=== PATIENT | male | born 1980 | race African-American/Black ===

== ENCOUNTER 2025-03-12 10:08 | Emergency (ER) | payer MEDICAID, OTHER ==
[~2025-03-12] VITALS: Ht 185.4 cm; Wt 62.5 kg
[2025-03-12 10:11] VITALS: TEMP 97.4
--- NOTE | 2025-03-12 10:28 | ED.PDOC ---
HPI (NEURO) HPI Comments 45 y/o M, with PMHx of seizures presents to the ED for CC of confusion. Patient states, that he has felt confused, lethargic, and weak d/t being off prescribed medications for an unknown period of time. Patient relays, that he had a brain tumor removed x17 years ago and has since then, been taking Keppra. Patient was seen at [facility] [place] yesterday (03/11/25) all test and imaging came back unremarkable. At this time patient is A&Ox4. Chief Complaint: Confusion Time Seen by MD: 10:20 Reviewed Notes: Nurses Notes, Medications, Allergies Information Source: Patient Mode of Arrival: Ambulatory Severity: Moderate Headache Severity: None Timing: Months Duration: Since onset Prehospital treatment: None Weakness Location: Generalized Onset: At rest Circumstances: Spontaneous Symptoms: Weakness Modifying factors: Nothing Associated Signs and Symptoms: Weakness Past Medical History PAST MEDICAL HISTORY: Seizures Surgical History: Denies all surgeries Family History Family History: Unknown Social History Smoker: Cigarettes Alcohol: Occasionally Drugs: Marijuana Lives In: Home Constitutional: reports: weakness; denies: chills, diaphoresis, fatigue, fever, malaise, sweats, others EENTM: denies: blurred vision, double vision, ear bleeding, ear discharge, ear drainage, ear pain, ear ringing, eye pain, eye redness, hearing loss, mouth pain, mouth swelling, nasal discharge, nose bleeding, nose congestion, nose pain, photophobia, tearing, throat pain, throat swelling, voice changes, others Respiratory: denies: cough, hemoptysis, orthopnea, SOB at rest, shortness of breath, SOB with excertion, stridor, wheezing, others Cardiovascular: denies: chest pain, dizzy spells, diaphoresis, Dyspnea on exertion, edema, irregular heart beat, left arm pain, lightheadedness, palpitations, PND, syncope, others Gastrointestinal: denies: abdomen distended, abdominal pain, blood streaked bowels, constipated, diarrhea, dysphagia, difficulty swallowing, hematemesis, melena, nausea, poor appetite, poor fluid intake, rectal bleeding, rectal pain, vomiting, others Genitourinary: denies: burning, dysuria, flank pain, frequency, hematuria, incontinence, penile discharge, penile sore, pain, testicle pain, testicle swelling, urgency, others Neurological: reports: others (CONFUSION); denies: dizziness, fainting, headache, left sided numbness, left sided weakness, numbness, paresthesia, pre- existing deficit, right sided numbness, right sided weakness, seizure, speech problems, tingling, tremors, weakness Musculoskeletal: denies: back pain, gout, joint pain, joint swelling, muscle pain, muscle stiffness, neck pain, others Integumetry: denies: bruises, change in color, change in hair/nails, dryness, laceration, lesions, lumps, rash, wounds, others Allergic/Immunocompromised: denies: Difficulty Healing, Frequent Infections, Hives, Itching, others Hematologic/Lymphatic: denies: anemia, blood clots, easy bleeding, easy bruising, swollen glands, others Endocrine: denies: excessive hunger, excessive sweating, excessive thirst, excessive urination, flushing, intolerance to cold, intolerance to heat, unexplained weight gain, unexplained weight loss, others Psychiatric: denies: anxiety, bipolar disorder, depression, hopeless, panic disorder, schizophrenia, sleepless, suicidal, others All Other Systems: Reviewed and Negative Physical Exam General Appearance: No Apparent Distress HEENT: Normal ENT Inspection, Pharynx Normal, TMs Normal Neck: Full Range of Motion, Non-Tender, Normal, Normal Inspection Respiratory: Chest Non-Tender, Lungs Clear, No Accessory Muscle Use, No Respiratory Distress, Normal Breath Sounds Cardiovascular: No Edema, No JVD, No Murmur, No Gallop, Normal Peripheral Pulses, Regular Rate/Rhythm Breast Exam: Deferred Gastrointestinal: No Organomegaly, Non Tender, No Pulsatile Mass, Normal Bowel Sounds, Soft Genitalia: Deferred Pelvic: Deferred Rectal: Deferred Extremities: No calf tenderness, Normal capillary refill, Normal inspection, Normal range of motion, Non-tender, No pedal edema Musculoskeletal : Apperance: Normal Neurologic: Alert, surgical technology instructor II-XII nml as Tested, No Motor Deficits, Normal Affect, Normal Mood, No Sensory Deficits Cerebellar Function: Normal Reflexes: Normal Skin: Dry, Normal Color, Warm, Other (Scar to the top of the scalp) Lymphatic: No Adenopathy Was a procedure done? Was a procedure done?: No Differential Diagnosis (SZ) Seizure: Anticonvulsant Withdrawl, Epilepsy-Break Through, Epilepsy-Status General Weakness: Dehydration, Electrolyte imbalance X-Ray, Labs, Meds, VS Vital Signs Date Time Temp Pulse Resp B/P (MAP) Pulse Ox O2 Delivery O2 Flow Rate FiO2 03/12/25 10:11 97.4 70 20 146/93 100 97.4 Lab Test 03/12/25 10:20 Range/Units POC Glucose 146 H 70-106 mg/dl The patient had a CAT scan of the head yesterday so the patient is being discharged at this time The patient is asking for oxycodone but we did tell him that he would have to go and see his doctor for the medications The patient is discharged. Time of 1ST Reevaluation: 10:50 Reevaluation 1ST: Unchanged Patient Education/Counseling: Diagnosis, Treatment, Prognosis, Need For Follow Up Family Education/Counseling: No Family Present Departure 1 Departure Time of Disposition: 10:43 Impression: Primary Impression: Chronic pain syndrome Disposition: 01 HOME / SELF CARE / HOMELESS Condition: Fair Discharged With: Self Critical Care Note Critical Care Time?: No Stability Stability form required: No Heart Score Heart Score: Heart Score Response (Comments) Value History N/A 0 EKG N/A 0 Age N/A 0 Risk Factors N/A 0 Troponin N/A 0 Total 0 I personally scribed for STEPHANIE DE LOS SANTOS MD ([email or web address]) on 03/12/25 at 10:28. Electronically submitted by Klaudia Diaz ([email or web address]). I personally scribed for STEPHANIE DE LOS SANTOS MD ([email or web address]) on 03/12/25 at 10:28. Electronically submitted by Klaudia Diaz ([email or web address]). STEPHANIE DE LOS SANTOS MD Mar 12, 2025 10:28
[2025-03-12 10:54] VITALS: BP 146/93; PULSE 70; RESP 20; O2SAT 100
== END 2025-03-12 10:55 | disposition home or self-care (01) ==
LOC: ER 10:12
DX: G89.4 Chronic pain syndrome (principal); R41.0 Disorientation, unspecified; R53.1 Weakness; F17.210 Nicotine dependence, cigarettes, uncomplicated; D49.6 Neoplasm of unspecified behavior of brain
CPT/HCPCS: 82947; 82962